=== PATIENT | male | born 1995 | race Caucasian/White ===

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

== ENCOUNTER 2018-06-28 08:46 | Emergency (ER) | payer MEDICAID ==
[~2018-06-28] VITALS: Ht 177.8 cm; Wt 94.4 kg
[2018-06-28 08:48] VITALS: BP 133/75; Ht 177.8 cm; Wt 94.4 kg
== END 2018-06-28 09:13 | disposition home or self-care (01) ==
LOC: ED 08:46
DX: K04.7 Periapical abscess without sinus (principal); Z90.89 Acquired absence of other organs